=== PATIENT | female | born 1970 | race Caucasian/White ===

== ENCOUNTER → 2016-11-10 | Outpatient (CLI) | payer OTHER ==
[~2016-11-10] MED LIST: ASPI-496 PO; DULO30CA2 PO; ZOLP10TA PO
== END | disposition home or self-care (01) ==
LOC: RAD 15:10
PROVIDERS: ATTEND Registered Nurse Registered Nurse First Assistant
DX: M50.223 Other cervical disc displacement at C6-C7 level (principal); M48.02 Spinal stenosis, cervical region; M25.78 Osteophyte, vertebrae; D43.2 Neoplasm of uncertain behavior of brain, unspecified
CPT/HCPCS: 70553; 72141

== ENCOUNTER → 2016-11-19 | Outpatient (CLI) | payer OTHER | LOC: RAD 01:36 | PROVIDERS: ATTEND Neurological Surgery | DX: Z02.9 Encounter for administrative examinations, unspecified (principal) ==

== ENCOUNTER → 2016-11-22 | Outpatient (CLI) | payer OTHER | END | disposition home or self-care (01) | LOC: CFH 12:23 | PROVIDERS: ATTEND Family Medicine | DX: S13.150A Subluxation of C4/C5 cervical vertebrae, initial encounter (principal); M48.02 Spinal stenosis, cervical region; M50.33 Other cervical disc degeneration, cervicothoracic region; M25.78 Osteophyte, vertebrae; X58.XXXA Exposure to other specified factors, initial encounter; Y93.89 Activity, other specified; Y92.89 Other specified places as the place of occurrence of the external cause; Y99.8 Other external cause status | CPT/HCPCS: 72050 ==

== ENCOUNTER → 2016-11-25 | Outpatient (CLI) | payer OTHER | END | disposition home or self-care (01) | LOC: CFH 08:31 | PROVIDERS: ATTEND Obstetrics & Gynecology | DX: Z12.31 Encounter for screening mammogram for malignant neoplasm of breast (principal) | CPT/HCPCS: G0202 ==

== ENCOUNTER 2018-03-05 14:13 | Outpatient (CLI) | payer OTHER ==
[~2018-03-05 14:13] MED LIST changes: +ACET650S21 PO; +CALC300T5 PO; +FAMO20TA37 PO; +GABA300C PO; +OMEP40CA6 PO
== END 2018-03-05 23:59 | disposition home or self-care (01) ==
LOC: CFH 14:13
PROVIDERS: ATTEND Obstetrics & Gynecology
DX: Z12.31 Encounter for screening mammogram for malignant neoplasm of breast (principal)
CPT/HCPCS: 77063; 77067

== ENCOUNTER 2018-08-22 07:11 | Outpatient (CLI) | payer OTHER | END 2018-08-22 23:59 | disposition home or self-care (01) | LOC: CFH 07:11 | PROVIDERS: ATTEND Registered Nurse Registered Nurse First Assistant | DX: I67.82 Cerebral ischemia (principal); Z88.8 Allergy status to other drugs, medicaments and biological substances; Z79.899 Other long term (current) drug therapy | CPT/HCPCS: 70553; A9585 ==

== ENCOUNTER 2019-07-10 12:37 | Outpatient (CLI) | payer OTHER ==
[~2019-07-10 12:37] MED LIST changes: +OMEP40CA42 PO; -OMEP40CA6 PO
[2019-07-10] MEDS ORDERED: OMNIPAQUE 350 MG/ML, 100ML BOTTLE ONE (13:00)
== END 2019-07-10 23:59 | disposition home or self-care (01) ==
LOC: RAD 12:37
PROVIDERS: ATTEND Family Medicine
DX: R06.02 Shortness of breath (principal); R07.9 Chest pain, unspecified
CPT/HCPCS: 71275; Q9967

== ENCOUNTER 2019-07-18 12:42 | Outpatient (CLI) | payer OTHER | END 2019-07-18 23:59 | disposition home or self-care (01) | LOC: CFH 12:42 | PROVIDERS: ATTEND Obstetrics & Gynecology | DX: Z12.31 Encounter for screening mammogram for malignant neoplasm of breast (principal) | CPT/HCPCS: 77063; 77067 ==

== ENCOUNTER 2019-09-07 00:52 | Emergency (ER) | payer OTHER ==
[~2019-09-07] VITALS: Ht 160 cm; Wt 62.0 kg
[2019-09-07] MEDS ORDERED: ONDANSETRON ODT 4 MG PO ONE (01:30)
[2019-09-07] MEDS ORDERED: ONDANSETRON ODT 4 MG ONE (01:35)
--- NOTE | 2019-09-07 01:37 | NUR ---
Patient presents to ER c/o intracranial pressure and neck pain since the 4th. Patient also has N/V. She has a hx of a brain tumor but she states this does not feel the same. Patient is in NAD. Respirations even and unlabored.
--- NOTE | 2019-09-07 02:10 | NUR ---
TASK RN: PT TO MRI VIA SHEMAR COSTA, ASMPSON, Michael, SKIN P/W/D.
[2019-09-07 03:25] VITALS: BP 115/91
--- NOTE | 2019-09-07 03:25 | NUR ---
Patient resting in [facility] with no complaints at this time. Awaiting MRI results.
[2019-09-07] MEDS ORDERED: LIDODERM 5% PATCH TD ONE ×2 (04:22→04:30)
--- NOTE | 2019-09-07 04:43 | NUR ---
Discharge instructions given. All questions and concerns addressed. Patient ambulatory with a steady gait. Belongings with patient.
== END 2019-09-07 04:44 | disposition home or self-care (01) ==
LOC: ED 03:31
DX: S16.1XXA Strain of muscle, fascia and tendon at neck level, initial encounter (principal); R51 Headache; R42 Dizziness and giddiness; E78.5 Hyperlipidemia, unspecified; E03.9 Hypothyroidism, unspecified; Z90.710 Acquired absence of both cervix and uterus; X58.XXXA Exposure to other specified factors, initial encounter; Y93.89 Activity, other specified; Y92.89 Other specified places as the place of occurrence of the external cause; Y99.8 Other external cause status
CPT/HCPCS: 70551; 72141; 99285; Q0162

== ENCOUNTER 2020-02-14 19:11 | Emergency (ER) | payer OTHER ==
[~2020-02-14] VITALS: Ht 157.5 cm; Wt 65.0 kg
--- NOTE | 2020-02-14 19:34 | NUR ---
pt having chest pain 3/10 at this time, tightness, and worse with activity. pt recently diagnosed with reactive airway obstruction and recently placed on oral dexamethasone and inhaler. pt states feeling much better at rest, and having a slight cough at home. pt placed on monitors, and erp at bedside
[2020-02-14 20:44] LABS: ALANINE AMINOTRANSFERASE 18 U/L (12-78); ALBUMIN 3.6 g/dL (3.4-5.0); ANION GAP 7 mmol/L (5-15); CALCIUM 8.7 mg/dL (8.5-10.1); CHLORIDE 107 mmol/L (98-107)
[2020-02-14 20:47] LABS: BASOPHILS % (AUTO) 1 % (0-1); EOSINOPHILS % (AUTO) 0 % (1-7); LYMPHOCYTES % (AUTO) 19 % (22-44); MEAN CORPUSCULAR HEMOGLOBIN 33.1 pg (27.0-34.8); MEAN CORPUSCULAR HGB CONC 35.2 g/dL (32.4-35.8); MEAN PLATELET VOLUME 8.5 fL (7.4-10.4); MONOCYTES % (AUTO) 7 % (2-9); NEUTROPHILS % (AUTO) 73 % (42-75); PLATELET COUNT 285 x10^3/uL (130-400); RED BLOOD COUNT 4.36 x10^6/uL (3.82-5.3); RED CELL DISTRIBUTION WIDTH 12.6 % (9.6-15.2)
[2020-02-14 20:48] LABS: MD NO
[2020-02-14 20:49] LABS: ALKALINE PHOSPHATASE 50 U/L (45-117); BILIRUBIN,TOTAL 0.3 mg/dL (0.2-1.0); TOTAL PROTEIN 6.8 g/dL (6.4-8.2); TROPONIN I < 0.015 ng/mL (0.000-0.045)
--- NOTE | 2020-02-14 20:56 | NUR ---
ERP AT BEDSIDE FOR RECHECK. PT RESTIING COMFORTABLY IN [facility].
[2020-02-14 21:23] VITALS: BP 121/75
== END 2020-02-14 21:36 | disposition home or self-care (01) ==
LOC: ED 20:57
DX: J06.9 Acute upper respiratory infection, unspecified (principal); Z20.822 Contact with and (suspected) exposure to COVID-19; R07.89 Other chest pain; R94.31 Abnormal electrocardiogram [ECG] [EKG]; E03.9 Hypothyroidism, unspecified; K21.9 Gastro-esophageal reflux disease without esophagitis
CPT/HCPCS: 36415; 71045; 80053; 84484; 84703; 85025; 87635; 93005; 99285